=== PATIENT | male | born 1960 | race Caucasian/White ===

== ENCOUNTER 2017-05-26 10:36 | Inpatient (IN) | payer OTHER ==
[2017-05-23 14:32] LABS: HEMOGLOBIN 15.3 g/dL (13.7-18.0); WHITE BLOOD COUNT 7.3 x10^3/uL (3.4-10)
[2017-05-23 14:40] LABS: BLOOD UREA NITROGEN 14 mg/dL (7-18)
[2017-05-23 14:44] LABS: ASPARTATE AMINO TRANSFERASE 16 U/L (15-37)
[~2017-05-26] VITALS: Ht 182.9 cm; Wt 94.1 kg
[~2017-05-26 10:36] MED LIST: HYDR-3245 PO
[2017-05-26 11:49] VITALS: BP 137/91
[2017-05-26] MEDS ORDERED: VANCOMYCIN PMX 1GM/200ML 200 ML IV ONE (12:00)
[2017-05-26] MEDS ORDERED: LACTATED RINGERS 1,000 ML IV SCH ×2 (12:12→20:00)
[2017-05-26] MEDS ORDERED: BUPIVACAINE/PF 0.5% ONE ×2 (13:31→14:14)
[2017-05-26] MEDS ORDERED: DEXAMETHASONE 4 MG/ML, 5ML ONE (13:31)
[2017-05-26] MEDS ORDERED: THROMBIN 5,000 UNIT VIAL TP ONE (13:31)
[2017-05-26] MEDS ORDERED: BACITRACIN 50,000 UNIT ONE (13:32)
[2017-05-26] MEDS ORDERED: KETAMINE 10 MG/ML, 20ML ONE ×2 (13:53→14:07)
[2017-05-26] MEDS ORDERED: FENTANYL PF 1000 MCG/20ML ONE (13:53)
[2017-05-26] MEDS ORDERED: METOCLOPRAMIDE 5 MG/ML, 2ML ONE (14:07)
[2017-05-26] MEDS ORDERED: SUCCINYLCHOLINE 20 MG/ML, 10ML ONE (14:07)
[2017-05-26] MEDS ORDERED: PROPOFOL 10 MG/ML, 20ML ONE (14:07)
[2017-05-26] MEDS ORDERED: ONDANSETRON 2MG/ML, 2ML ONE (14:07)
[2017-05-26] MEDS ORDERED: ROCURONIUM 10 MG/ML ONE (14:07)
[2017-05-26] MEDS ORDERED: CEFAZOLIN 1,000 MG ONE (14:07)
[2017-05-26] MEDS ORDERED: DEXAMETHASONE 4 MG/ML, 1ML ONE (14:07)
[2017-05-26] MEDS ORDERED: TRANEXAMIC ACID 100 MG/ML, 10ML ONE (14:14)
[2017-05-26] MEDS ORDERED: EPINEPHRINE 1 MG/ML, 1ML ONE (14:14)
[2017-05-26] MEDS ORDERED: PROMETHAZINE 25 MG/ML, 1ML IV PRN (15:00)
[2017-05-26] MEDS ORDERED: MIDAZOLAM 1 MG/ML, 2ML IV PRN (15:00)
[2017-05-26] MEDS ORDERED: ACETAMINOPHEN 325 MG TABLET PO PRN (15:00)
[2017-05-26] MEDS ORDERED: hydrALAzine 20 MG/ML, 1ML IV PRN ×2 (15:00→18:30)
[2017-05-26] MEDS ORDERED: DIAZEPAM 5 MG/ML, 2ML IVPush PRN (15:00)
[2017-05-26] MEDS ORDERED: LABETALOL 5MG/ML, 20ML IV PRN ×3 (15:00→20:00)
[2017-05-26] MEDS ORDERED: MEPERIDINE/PF 25MG/0.5ML IVPush PRN (15:00)
[2017-05-26] MEDS ORDERED: ONDANSETRON 2MG/ML, 2ML IVPush PRN (15:00)
[2017-05-26] MEDS ORDERED: OXYcodone 5 MG/5 ML ORAL.SOL UDC PO PRN (15:00)
[2017-05-26] MEDS ORDERED: VANCOMYCIN 1,000 MG ONE (16:02)
[2017-05-26] MEDS ORDERED: HYDROmorphone 1 MG/ML, 1ML ONE ×3 (16:44→17:46)
[2017-05-26] MEDS ORDERED: OXYcodone 5 MG/5 ML ORAL.SOL UDC ONE (16:44)
[2017-05-26] MEDS ORDERED: FENTANYL PF 100 MCG/2ML ONE ×2 (16:44→17:02)
[2017-05-26] MEDS ORDERED: ACETAMINOPHEN 650 MG/20.3 ML UDC ONE (16:44)
[2017-05-26] MEDS: FENTANYL PF 100 MCG/2ML IV PRN ×3 (16:45→17:26)
[2017-05-26] MEDS: HYDROmorphone 1 MG/ML, 1ML IV PRN ×5 (16:50→17:48)
[2017-05-26] MEDS ORDERED: MIDAZOLAM 1 MG/ML, 2ML ONE (17:02)
[2017-05-26] MEDS ORDERED: hydrALAzine 20 MG/ML, 1ML ONE (17:58)
[2017-05-26 18:40] VITALS: BP 162/100
[2017-05-26] MEDS ORDERED: ACETAMINOPHEN 650 MG SUPP PR PRN (20:00)
[2017-05-26] MEDS ORDERED: DIAZEPAM 5 MG/ML, 2ML IV PRN (20:00)
[2017-05-26] MEDS ORDERED: DIPHENHYDRAMINE 50 MG/ML, 1ML IVPush PRN (20:00)
[2017-05-26] MEDS ORDERED: DIAZEPAM 5 MG TABLET PO PRN (20:00)
[2017-05-26] MEDS ORDERED: PROMETHAZINE 25 MG/ML, 1ML IM PRN (20:00)
[2017-05-26] MEDS ORDERED: BISACODYL 10 MG SUPP PR PRN (20:00)
[2017-05-26] MEDS ORDERED: DIPHENHYDRAMINE 50 MG/ML, 1ML IM PRN (20:00)
[2017-05-26] MEDS ORDERED: ONDANSETRON 2MG/ML, 2ML IV PRN (20:00)
[2017-05-26] MEDS ORDERED: ACETAMINOPHEN 500 MG TABLET PO PRN (20:00)
[2017-05-26] MEDS ORDERED: DIPHENHYDRAMINE 50 MG CAPSULE PO PRN (20:00)
[2017-05-26] MEDS: morphine SULFATE 10 MG/ML, 1ML IV PRN ×2 (20:28→21:11)
[2017-05-26] MEDS: D5%-0.9% NACL+KCL 20MEQ 1,000 ML IV SCH (20:35)
[2017-05-26] MEDS ORDERED: ZOLPIDEM 5MG TABLET PO PRN (21:00)
[2017-05-26 21:49] VITALS: BP 176/99
[2017-05-26] MEDS: CEFAZOLIN PMX 1GM/50ML 50 ML IVPB SCH (22:36)
[2017-05-26] MEDS: KETOROLAC 30 MG/1 ML IV PRN (22:47)
[2017-05-26 23:20] VITALS: BP 149/86
[2017-05-27] MEDS: morphine SULFATE 10 MG/ML, 1ML IV PRN ×2 (02:01→08:04)
[2017-05-27] MEDS: OXYcodone IR 5MG TABLET PO PRN ×5 (02:02→21:14)
[2017-05-27 03:16] VITALS: BP 166/95
[2017-05-27 05:50] LABS: HEMOGLOBIN 14.6 g/dL (13.7-18.0); WHITE BLOOD COUNT 15.4 x10^3/uL (3.4-10)
[2017-05-27] MEDS: CEFAZOLIN PMX 1GM/50ML 50 ML IVPB SCH (06:24)
[2017-05-27] MEDS: KETOROLAC 30 MG/1 ML IV PRN (06:24)
[2017-05-27 08:08] VITALS: BP 160/79
[2017-05-27] MEDS: D5%-0.9% NACL+KCL 20MEQ 1,000 ML IV SCH ×2 (08:35→18:35)
[2017-05-27] MEDS ORDERED: SENNA/DOCUSATE TABLET PO SCH (09:00)
[2017-05-27] MEDS ORDERED: OXYC10TA6 PO (09:55)
[2017-05-27] MEDS ORDERED: DIAZ5TAB PO (09:56)
[2017-05-27] MEDS ORDERED: CEPH-368 PO (09:58)
[2017-05-27] MEDS ORDERED: IBUP-1223 PO (09:59)
[2017-05-27] MEDS ORDERED: IBUPROFEN 600 MG TABLET ONE (10:00)
[2017-05-27] MEDS ORDERED: IBUPROFEN 200 MG TABLET ONE (10:00)
[2017-05-27] MEDS: IBUPROFEN 800 MG TABLET PO PRN ×2 (10:02→21:14)
[2017-05-27] MEDS ORDERED: DIAZEPAM 5 MG TABLET PO PRN (12:30)
[2017-05-27] MEDS ORDERED: DIAZEPAM 5 MG TABLET ONE (12:42)
[2017-05-27] MEDS: DIAZEPAM 5 MG TABLET PO PRN ×2 (12:47→23:59)
[2017-05-27 14:11] VITALS: BP 153/92
[2017-05-27 18:47] VITALS: BP 150/82
[2017-05-27] MEDS ORDERED: ACETAMINOPHEN 500 MG TABLET PO PRN (19:30)
[2017-05-27] MEDS ORDERED: DIPHENHYDRAMINE 50 MG CAPSULE PO PRN (19:30)
[2017-05-27] MEDS ORDERED: BISACODYL 10 MG SUPP PR PRN (19:30)
[2017-05-27] MEDS ORDERED: ACETAMINOPHEN 650 MG SUPP PR PRN (19:30)
[2017-05-27] MEDS ORDERED: ONDANSETRON 2MG/ML, 2ML IV PRN (19:30)
[2017-05-27] MEDS ORDERED: PROMETHAZINE 25 MG/ML, 1ML IM PRN (19:30)
[2017-05-27] MEDS ORDERED: DIPHENHYDRAMINE 50 MG/ML, 1ML IVPush PRN (19:30)
[2017-05-27] MEDS ORDERED: ZOLPIDEM 5MG TABLET PO PRN (19:30)
[2017-05-27] MEDS ORDERED: DIPHENHYDRAMINE 50 MG/ML, 1ML IM PRN (19:30)
[2017-05-28 01:35] VITALS: BP 159/90
[2017-05-28] MEDS: OXYcodone IR 5MG TABLET PO PRN ×7 (01:40→22:07)
[2017-05-28] MEDS: D5%-0.9% NACL+KCL 20MEQ 1,000 ML IV SCH ×2 (04:35→14:35)
[2017-05-28 05:26] LABS: HEMATOCRIT 42.6 % (39.2-51.8); HEMOGLOBIN 14.5 g/dL (13.7-18.0); WHITE BLOOD COUNT 14.6 x10^3/uL (3.4-10)
[2017-05-28] MEDS: IBUPROFEN 800 MG TABLET PO PRN ×3 (06:16→22:07)
[2017-05-28 08:26] VITALS: BP 159/94
[2017-05-28] MEDS: DIAZEPAM 5 MG TABLET PO PRN ×2 (08:39→15:46)
[2017-05-28] MEDS: SENNA/DOCUSATE TABLET PO SCH (08:39)
[2017-05-28] MEDS ORDERED: SENNA/DOCUSATE TABLET PO SCH (09:00)
[2017-05-28] MEDS: DEXAMETHASONE 4 MG/ML, 5ML IV PRN ×2 (12:22→18:33)
[2017-05-28] MEDS ORDERED: IBUPROFEN 600 MG TABLET ONE ×2 (14:53→21:30)
[2017-05-28] MEDS ORDERED: IBUPROFEN 200 MG TABLET ONE ×2 (14:53→21:30)
[2017-05-28 15:01] VITALS: BP 161/95
[2017-05-28 20:32] VITALS: BP 170/98
[2017-05-29] MEDS: DIAZEPAM 5 MG TABLET PO PRN ×3 (00:32→21:26)
[2017-05-29] MEDS: DEXAMETHASONE 4 MG/ML, 5ML IV PRN ×3 (00:32→17:15)
[2017-05-29] MEDS: D5%-0.9% NACL+KCL 20MEQ 1,000 ML IV SCH ×3 (00:35→20:35)
[2017-05-29 03:36] VITALS: BP 119/83
[2017-05-29] MEDS: OXYcodone IR 5MG TABLET PO PRN ×5 (03:37→21:26)
[2017-05-29 05:33] LABS: WHITE BLOOD COUNT 13.1 x10^3/uL (3.4-10)
[2017-05-29 08:00] VITALS: BP 148/93
[2017-05-29] MEDS ORDERED: IBUPROFEN 200 MG TABLET ONE ×2 (08:55→17:12)
[2017-05-29] MEDS ORDERED: IBUPROFEN 600 MG TABLET ONE ×2 (08:55→17:12)
[2017-05-29] MEDS: SENNA/DOCUSATE TABLET PO SCH (09:00)
[2017-05-29] MEDS: IBUPROFEN 800 MG TABLET PO PRN ×2 (09:01→17:14)
[2017-05-29 15:03] VITALS: BP 122/80
[2017-05-29 21:27] VITALS: BP 157/85
[2017-05-30] MEDS: OXYcodone IR 5MG TABLET PO PRN ×5 (01:37→20:53)
[2017-05-30] MEDS: DEXAMETHASONE 4 MG/ML, 5ML IV PRN ×3 (01:38→17:36)
[2017-05-30 01:43] VITALS: BP 158/95
[2017-05-30 05:22] LABS: HEMATOCRIT 43.9 % (39.2-51.8); HEMOGLOBIN 14.9 g/dL (13.7-18.0); WHITE BLOOD COUNT 19.3 x10^3/uL (3.4-10)
[2017-05-30] MEDS: D5%-0.9% NACL+KCL 20MEQ 1,000 ML IV SCH ×2 (05:47→16:35)
[2017-05-30] MEDS: DIAZEPAM 5 MG TABLET PO PRN ×2 (05:48→19:10)
[2017-05-30 08:10] VITALS: BP 120/81
[2017-05-30] MEDS ORDERED: IBUPROFEN 600 MG TABLET ONE ×2 (09:32→17:31)
[2017-05-30] MEDS ORDERED: IBUPROFEN 200 MG TABLET ONE ×2 (09:32→17:32)
[2017-05-30] MEDS: SENNA/DOCUSATE TABLET PO SCH (09:36)
[2017-05-30] MEDS: IBUPROFEN 800 MG TABLET PO PRN ×2 (09:36→17:36)
[2017-05-30 12:45] VITALS: BP 129/84
[2017-05-30 20:22] VITALS: BP 127/80
[2017-05-31] MEDS: OXYcodone IR 5MG TABLET PO PRN ×4 (01:23→17:37)
[2017-05-31] MEDS: DEXAMETHASONE 4 MG/ML, 5ML IV PRN (01:23)
[2017-05-31] MEDS: D5%-0.9% NACL+KCL 20MEQ 1,000 ML IV SCH ×3 (02:35→22:35)
[2017-05-31] MEDS: DIAZEPAM 5 MG TABLET PO PRN (04:27)
[2017-05-31 04:32] VITALS: BP 142/82
[2017-05-31 08:41] VITALS: BP 120/74
[2017-05-31] MEDS: SENNA/DOCUSATE TABLET PO SCH (08:53)
[2017-05-31 13:44] VITALS: BP 126/76
[2017-05-31 19:36] VITALS: BP 139/74
[2017-06-01 01:39] VITALS: BP 131/82
[2017-06-01] MEDS: OXYcodone IR 5MG TABLET PO PRN ×2 (01:59→13:22)
[2017-06-01] MEDS: DEXAMETHASONE 4 MG/ML, 5ML IV PRN (06:39)
[2017-06-01 07:30] VITALS: BP 132/80
[2017-06-01] MEDS: D5%-0.9% NACL+KCL 20MEQ 1,000 ML IV SCH ×3 (08:35→21:04)
[2017-06-01] MEDS: SENNA/DOCUSATE TABLET PO SCH (09:52)
[2017-06-01] MEDS: DIAZEPAM 5 MG TABLET PO PRN (13:21)
[2017-06-01 14:55] VITALS: BP 134/68
[2017-06-01 19:43] VITALS: BP 135/81
[2017-06-02 00:06] VITALS: BP 122/76
[2017-06-02] MEDS: OXYcodone IR 5MG TABLET PO PRN ×3 (01:29→11:17)
[2017-06-02 07:10] VITALS: BP 130/84
[2017-06-02] MEDS: SENNA/DOCUSATE TABLET PO SCH (09:27)
[2017-06-02] MEDS: DIAZEPAM 5 MG TABLET PO PRN ×2 (11:17→22:04)
[2017-06-02 12:55] VITALS: BP 112/74
[2017-06-02] MEDS: D5%-0.9% NACL+KCL 20MEQ 1,000 ML IV SCH ×2 (14:35→23:08)
[2017-06-02 19:56] VITALS: BP 128/76
[2017-06-03 01:14] VITALS: BP 116/76
[2017-06-03] MEDS: OXYcodone IR 5MG TABLET PO PRN ×2 (03:43→20:02)
[2017-06-03] MEDS: DIAZEPAM 5 MG TABLET PO PRN ×2 (03:43→18:25)
[2017-06-03 09:40] VITALS: BP 112/68
[2017-06-03] MEDS: SENNA/DOCUSATE TABLET PO SCH (09:55)
[2017-06-03 13:32] VITALS: BP 118/78
[2017-06-03] MEDS ORDERED: ACETAMINOPHEN 650 MG SUPP PR PRN (19:30)
[2017-06-03] MEDS ORDERED: DIPHENHYDRAMINE 50 MG/ML, 1ML IM PRN (19:30)
[2017-06-03] MEDS ORDERED: PROMETHAZINE 25 MG/ML, 1ML IM PRN (19:30)
[2017-06-03] MEDS ORDERED: ZOLPIDEM 5MG TABLET PO PRN (19:30)
[2017-06-03] MEDS ORDERED: BISACODYL 10 MG SUPP PR PRN (19:30)
[2017-06-03] MEDS ORDERED: DIPHENHYDRAMINE 50 MG/ML, 1ML IVPush PRN (19:30)
[2017-06-03] MEDS ORDERED: LACTATED RINGERS 1,000 ML IV SCH (19:30)
[2017-06-03] MEDS ORDERED: ONDANSETRON 2MG/ML, 2ML IV PRN (19:30)
[2017-06-03] MEDS ORDERED: ACETAMINOPHEN 500 MG TABLET PO PRN (19:30)
[2017-06-03] MEDS ORDERED: DIPHENHYDRAMINE 50 MG CAPSULE PO PRN (19:30)
[2017-06-03 19:53] VITALS: BP 134/83
[2017-06-04] MEDS: OXYcodone IR 5MG TABLET PO PRN ×4 (02:02→19:42)
[2017-06-04 03:05] VITALS: BP 114/77
[2017-06-04] MEDS: DIAZEPAM 5 MG TABLET PO PRN (06:16)
[2017-06-04 07:44] VITALS: BP 128/83
[2017-06-04] MEDS: MAGNESIUM HYDROXIDE 8%, 30ML UDC PO PRN (08:52)
[2017-06-04] MEDS: SENNA/DOCUSATE TABLET PO SCH (08:53)
[2017-06-04 13:26] VITALS: BP 127/40
[2017-06-04 14:03] VITALS: BP 122/74
[2017-06-04 20:00] VITALS: BP 121/80
[2017-06-05 02:18] VITALS: BP 115/73
[2017-06-05] MEDS ORDERED: IBUPROFEN 200 MG TABLET ONE (02:24)
[2017-06-05] MEDS ORDERED: IBUPROFEN 600 MG TABLET ONE (02:24)
[2017-06-05] MEDS: IBUPROFEN 800 MG TABLET PO PRN ×2 (02:26→21:19)
[2017-06-05] MEDS: OXYcodone IR 5MG TABLET PO PRN ×3 (02:26→13:25)
[2017-06-05 07:49] VITALS: BP 124/80
[2017-06-05] MEDS: SENNA/DOCUSATE TABLET PO SCH (08:38)
[2017-06-05] MEDS: MAGNESIUM HYDROXIDE 8%, 30ML UDC PO PRN (08:38)
[2017-06-05 13:31] VITALS: BP 118/79
[2017-06-05] MEDS: DIAZEPAM 5 MG TABLET PO PRN (20:32)
[2017-06-05 20:52] VITALS: BP 116/78
[2017-06-06 03:07] VITALS: BP 115/78
[2017-06-06] MEDS: DIAZEPAM 5 MG TABLET PO PRN ×2 (06:03→13:53)
[2017-06-06 07:50] VITALS: BP 117/74
[2017-06-06] MEDS ORDERED: IBUPROFEN 600 MG TABLET ONE ×2 (09:10→17:45)
[2017-06-06] MEDS ORDERED: IBUPROFEN 200 MG TABLET ONE ×3 (09:10→18:05)
[2017-06-06] MEDS: SENNA/DOCUSATE TABLET PO SCH (09:13)
[2017-06-06] MEDS: IBUPROFEN 800 MG TABLET PO PRN ×3 (09:14→18:13)
[2017-06-06 12:59] VITALS: BP 116/70
[2017-06-06 19:41] VITALS: BP 119/79
[2017-06-07 02:23] VITALS: BP 133/78
[2017-06-07 07:53] VITALS: BP 138/82
[2017-06-07] MEDS: SENNA/DOCUSATE TABLET PO SCH (07:56)
[2017-06-07] MEDS: MAGNESIUM HYDROXIDE 8%, 30ML UDC PO PRN (09:25)
[2017-06-07 15:30] VITALS: BP 117/73
[2017-06-07] MEDS: DIAZEPAM 5 MG TABLET PO PRN (20:05)
[2017-06-07 20:46] VITALS: BP 110/73
[2017-06-08 02:30] VITALS: BP 118/70
[2017-06-08 07:22] VITALS: BP 117/78
[2017-06-08] MEDS: DIAZEPAM 5 MG TABLET PO PRN (09:31)
[2017-06-08] MEDS: SENNA/DOCUSATE TABLET PO SCH (09:31)
[2017-06-08 13:12] VITALS: BP 118/76
[2017-06-08] MEDS ORDERED: MORP-52 PO (18:42)
[2017-06-08 19:42] VITALS: BP 113/80
[2017-06-08 20:23] VITALS: BP 125/85
== END 2017-06-08 20:15 | disposition home or self-care (01) | DRG 473 ==
LOC: ORIP 11:30 → 4NOR 18:38
PROVIDERS: ADMIT Orthopaedic Surgery Orthopaedic Surgery of the Spine; ATTEND Orthopaedic Surgery Orthopaedic Surgery of the Spine
PROC: 4A11X4G Monitoring of Peripheral Nervous Electrical Activity, Intraoperative, External Approach (ICD-10-PCS; 2017-05-26)
PROC: 0RG2071 Fusion of 2 or more Cervical Vertebral Joints with Autologous Tissue Substitute, Posterior Approach, Posterior Column, Open Approach (ICD-10-PCS; principal; 2017-05-26 14:00)
DX: M48.02 Spinal stenosis, cervical region (principal); M62.838 Other muscle spasm
CPT/HCPCS: 36415; 71020; 72040; 72050; 72141; 80053; 81003; 85025; 85610; 85651; 85730; 86850; 86900; 93005; C1713; J0171; J0690; J1100; J1170; J1885; J2250; J2405; J2704; J3010; J3370; J3490; C1760; C1762; C9362; J0330; J0360; J2270; J2765; J3480; J7120